=== PATIENT | male | born 1955 | race Two or more races ===

== ENCOUNTER 2022-01-28 14:33 | Emergency (ER) | payer OTHER ==
[~2022-01-28] VITALS: Ht 180.3 cm; Wt 98.4 kg
[2022-01-28 16:32] LABS: Basophils # (auto) 0.1 10 ^3/uL (0-0.2); Basophils % (auto) 0.9 % (0.0-2.0); Eosinophils # (auto) 0.3 10 ^3/uL (0-0.8); Eosinophils % (auto) 4.4 % (0.0-7.0); Hemoglobin 14.9 g/dL (13.5-17.5); Lymphocytes # (auto) 1.4 10 ^3/uL (0.4-5.4); Lymphocytes % (auto) 24.2 % (10.0-50.0); Mean Corpuscular Hemoglobin 31.8 pg (28.0-32.0); Mean Corpuscular Hgb Conc. 34.6 g/dL (32.0-36.0); Monocytes # (auto) 0.5 10 ^3/uL (0-1.3); Monocytes % (auto) 8.2 % (0.0-12.0); Neutrophils # (auto) 3.7 10 ^3/uL (1.6-8.6); Neutrophils % (auto) 62.3 % (37.0-80.0); Nucleated Red Blood Cells % 0.1 %; Red Blood Cells 4.68 10^6/uL (4.5-5.90); Red Cell Distribution Width 13.2 % (11.8-14.3); White Blood Cell 5.9 10^3/uL (4.4-10.8)
[2022-01-28 16:47] LABS: Albumin 3.7 g/dL (3.4-5.0); BUN/Creatinine Ratio 18.1; Calcium 9.4 mg/dL (8.5-10.1); Potassium 4.9 mmol/L (3.5-5.1)
[2022-01-28 16:50] LABS: Bilirubin, Total 0.7 mg/dL (0.2-1.0)
[2022-01-28 20:52] LABS: Urine Bacteria NONE SEEN /hpf (None Seen); Urine Blood Negative /uL (Negative); Urine Mucus FEW (None Seen); Urine Specific Gravity 1.028 (1.001-1.035); Urine WBC 1 /hpf (0 - 3)
[2022-01-28 21:42] VITALS: BP 144/98
== END 2022-01-29 01:27 | disposition home or self-care (01) ==
LOC: ER 14:33
DX: R10.11 Right upper quadrant pain (principal); R19.7 Diarrhea, unspecified; I10 Essential (primary) hypertension; Z88.8 Allergy status to other drugs, medicaments and biological substances
CPT/HCPCS: 36415; 74176; 80053; 81001; 85025; 93005

== ENCOUNTER 2023-07-07 06:13 | Inpatient (IN) | payer OTHER ==
[~2023-07-07] VITALS: Ht 180.3 cm; Wt 95.6 kg
[~2023-07-07 06:13] MED LIST: AMLO1TAB23 PO; LISI40TA16 PO; RIV20T PO; ROSU40TA81 PO
[2023-07-07] MEDS ORDERED: ceFAZolin 1GM/50ML 0 ML IV ONE (06:24)
[2023-07-07] MEDS ORDERED: ceFAZolin 2 GM/D5W100ml 100 ML IV ONE (06:27)
[2023-07-07] MEDS ORDERED: TRANEXAMIC ACID 20 ML ONE (06:33)
[2023-07-07] MEDS ORDERED: BUPIVACAINE HCL 50 ML ONE (06:45)
[2023-07-07] MEDS ORDERED: EPINEPHrine HCL 1 MG/1 ML AMP ONE (06:45)
[2023-07-07] MEDS ORDERED: MORPHINE SULF PF 5 MG/10 ML VIAL ONE (06:47)
[2023-07-07] MEDS ORDERED: KETOROLAC TROMETH 30 MG/ML 1ML VIAL ONE (06:48)
[2023-07-07] MEDS ORDERED: SUCCINYLCHOLINE CHLORIDE 20 MG/ML 10ML VIAL IV ONE (07:19)
[2023-07-07] MEDS ORDERED: LIDOCAINE 2% JELLY 11ml (GLYDO) ONE (07:22)
[2023-07-07] MEDS ORDERED: fentaNYL CITRATE 100 MCG/2 ML VL ONE ×2 (07:23→10:20)
[2023-07-07] MEDS ORDERED: MEPERIDINE HCL (50 MG/ML) 1 ML VIAL ONE (07:24)
[2023-07-07] MEDS ORDERED: MIDAZOLAM HCL 2MG/2ML 2ml VIAL (1mg/ml) ONE (07:24)
[2023-07-07] MEDS ORDERED: MORPHINE SULFATE 4 MG/ML SYR/VIAL IV PRN (08:00)
[2023-07-07] MEDS ORDERED: HYDROmorphone HCL 2 MG/ML VL/or syr IV PRN ×2 (08:00→11:30)
[2023-07-07] MEDS ORDERED: ePHEDrine SULFATE 50 MG/ML AMP IV PRN (08:00)
[2023-07-07] MEDS ORDERED: LABETALOL HCL 5 MG/ML 4ML SYRINGE IV PRN (08:00)
[2023-07-07] MEDS ORDERED: hydrALAZINE HCL 20 MG/ML VL IV PRN ×2 (08:00→15:30)
[2023-07-07] MEDS ORDERED: MIDAZOLAM HCL 2MG/2ML 2ml VIAL (1mg/ml) IV PRN (08:00)
[2023-07-07] MEDS ORDERED: ONDANSETRON HCL 4 MG/2 ML VIAL IV PRN (08:00)
[2023-07-07] MEDS ORDERED: KETOROLAC TROMETH 30 MG/ML 1ML VIAL IV ONE (08:00)
[2023-07-07] MEDS ORDERED: DexAMETHasone SOD PHOS 10MG/1ML VIAL INJ ONE (08:06)
[2023-07-07] MEDS ORDERED: PROPOFOL 10 MG/ML 20 ML IV ONE (08:06)
[2023-07-07] MEDS ORDERED: ONDANSETRON HCL 4 MG/2 ML VIAL ONE (08:06)
[2023-07-07] MEDS ORDERED: ROCURONIUM 10MG/ML 10ML VIAL IV ONE (08:06)
[2023-07-07] MEDS ORDERED: CLINDAMYCIN 300 MG IV ONE (08:45)
[2023-07-07] MEDS ORDERED: CLINDAMYCIN 900MG IV 50 ML IV ONE (08:45)
[2023-07-07] MEDS ORDERED: SUGAMMADEX 200mg/2ml Vial (100MG/ML) IV ONE (10:40)
[2023-07-07] MEDS ORDERED: BUPIVACAINE 0.5% INJ 50ML VIAL ID ONE (10:45)
[2023-07-07] MEDS ORDERED: VANCOMYCIN HCL 1000 MG VL ONE (10:50)
[2023-07-07 11:27] VITALS: PULSE 88; RESP 17; O2SAT 99
[2023-07-07] MEDS ORDERED: NITROGLYCERIN 0.4 MG SL TAB SL PRN (11:30)
[2023-07-07] MEDS ORDERED: ACETAMINOPHEN 325 MG TAB PO PRN (11:30)
[2023-07-07] MEDS ORDERED: MORPHINE SULFATE INJ 2 MG/ml SYRG IV PRN (11:30)
[2023-07-07] MEDS ORDERED: CLINDAMYCIN 600MG IV 50 ML IV SCH (12:00)
[2023-07-07] MEDS: HYDROmorphone HCL 2 MG/ML VL/or syr IV PRN ×3 (12:04→12:28)
[2023-07-07] MEDS: HYDROcodone-ACET 10/325MG TAB PO PRN (12:33)
[2023-07-07] MEDS: ONDANSETRON HCL 4 MG/2 ML VIAL IV PRN ×2 (12:54→18:36)
[2023-07-07] MEDS: LISINOPRIL 20 MG TAB PO SCH (14:45)
[2023-07-07] MEDS: amLODIPine BESYLATE 5 MG TAB PO SCH (14:46)
[2023-07-07 16:17] VITALS: BP 166/95; PULSE 70; RESP 19; TEMP 98.3; O2SAT 96
[2023-07-07 16:37] VITALS: BP 166/95; PULSE 70; RESP 19; TEMP 98.4; O2SAT 96
[2023-07-07] MEDS: CLINDAMYCIN 900MG IV 50 ML IV SCH (17:26)
[2023-07-07] MEDS: LACTATED RINGER'S 1,000 ML IV SCH ×2 (17:27→19:31)
[2023-07-07] MEDS ORDERED: RIVAROXABAN 20 MG TAB PO SCH (18:00)
[2023-07-07 18:25] LABS: Chloride 110 mmol/L (98-107); Sodium 140 mmol/L (136-145)
[2023-07-07 18:26] LABS: Anion Gap 9 (5-15); Carbon Dioxide 21 mmol/L (20-30)
[2023-07-07 18:31] LABS: BUN/Creatinine Ratio 14.6 (10.0-20.0); Blood Urea Nitrogen 12 mg/dL (9-23); Glucose 168 mg/dL (74-106)
[2023-07-07 20:00] VITALS: BP 164/60; PULSE 69; RESP 18; TEMP 97.6; O2SAT 99
[2023-07-07 22:00] VITALS: BP 164/80; PULSE 69; RESP 18; TEMP 97.6; O2SAT 99
[2023-07-07] MEDS: DOCUSATE SOD 100 MG CAP PO SCH (22:00)
[2023-07-08] MEDS: CLINDAMYCIN 900MG IV 50 ML IV SCH ×2 (01:01→10:19)
[2023-07-08] MEDS: HYDROcodone-ACET 10/325MG TAB PO PRN ×3 (03:07→15:49)
[2023-07-08 05:00] VITALS: BP 154/76; PULSE 72; RESP 16; TEMP 98.1; O2SAT 97
[2023-07-08 07:00] LABS: Basophils # (auto) 0 10 ^3/uL (0-0.2); Basophils % (auto) 0.2 % (0.0-2.0); Eosinophils # (auto) 0 10 ^3/uL (0-0.8); Hematocrit 38.7 % (41.0-53.0); Hemoglobin 13.2 g/dL (13.5-17.5); Lymphocytes # (auto) 0.7 10 ^3/uL (0.4-5.4); Lymphocytes % (auto) 6.8 % (10.0-50.0); Mean Corpuscular Hgb Conc. 34.1 g/dL (32.0-36.0); Mean Corpuscular Volume 93.6 fL (80.0-100.0); Monocytes # (auto) 1.2 10 ^3/uL (0-1.3); Monocytes % (auto) 12.2 % (0.0-12.0); Neutrophils # (auto) 7.9 10 ^3/uL (1.6-8.6); Neutrophils % (auto) 80.8 % (37.0-80.0); Red Blood Cells 4.14 10^6/uL (4.5-5.90); Red Cell Distribution Width 13.6 % (11.8-14.3); White Blood Cell 9.8 10^3/uL (4.4-10.8)
[2023-07-08 07:11] LABS: Alanine Aminotransferase 18 U/L (7-40); Albumin 3.8 g/dL (3.2-4.8); Alkaline Phosphatase 80 U/L (46-116); Anion Gap 6 (5-15); Aspartate Aminotransferase 17 U/L (13-40); BUN/Creatinine Ratio 20.9 (10.0-20.0); Bilirubin, Total 0.8 mg/dL (0.2-1.0); Blood Urea Nitrogen 14 mg/dL (9-23); Calcium 8.8 mg/dL (8.5-10.1); Carbon Dioxide 25 mmol/L (20-30); Chloride 108 mmol/L (98-107); Glucose 121 mg/dL (74-106); Potassium 3.8 mmol/L (3.5-5.1); Sodium 139 mmol/L (136-145); Total Protein 5.8 g/dL (5.7-8.2)
[2023-07-08] MEDS: LACTATED RINGER'S 1,000 ML IV SCH (07:30)
[2023-07-08 07:43] LABS: Magnesium 1.8 mg/dL (1.6-2.6)
[2023-07-08 08:00] VITALS: BP 154/68; PULSE 65; RESP 16; TEMP 98.3; O2SAT 96
[2023-07-08 08:10] VITALS: O2SAT 96
[2023-07-08 08:51] VITALS: BP 154/68; PULSE 65; RESP 16; TEMP 98.3; O2SAT 96
[2023-07-08] MEDS ORDERED: GLYCERIN ADULT RECTAL SUPP PR ONE (09:45)
[2023-07-08] MEDS ORDERED: FAMOTIDINE (10MG/ML) 2ML VL IV ONE (09:45)
[2023-07-08] MEDS ORDERED: PATIENTS OWN MEDICATION (Lisinopril 40 MG) PO SCH (10:00)
[2023-07-08] MEDS ORDERED: ROSUVASTATIN 40 MG PO SCH (10:00)
[2023-07-08] MEDS ORDERED: PATIENTS OWN MEDICATION (Amlodipine Besylate 10 MG) PO SCH (10:00)
[2023-07-08] MEDS ORDERED: CALCIUM CARB 500 MG CHEW TAB PO SCH (10:00)
[2023-07-08] MEDS ORDERED: PATIENTS OWN MEDICATION (Rosuvastatin Calcium (Crestor) 40 MG) PO SCH (10:00)
[2023-07-08] MEDS: LISINOPRIL 20 MG TAB PO SCH (10:13)
[2023-07-08] MEDS: amLODIPine BESYLATE 5 MG TAB PO SCH (10:14)
[2023-07-08] MEDS: DOCUSATE SOD 100 MG CAP PO SCH (10:15)
[2023-07-08] MEDS ORDERED: RIVAROXABAN 20 MG TAB PO SCH (13:00)
[2023-07-08 13:04] VITALS: BP 132/81; PULSE 73; RESP 16; TEMP 98.4; O2SAT 94
[2023-07-08] MEDS ORDERED: ZOFR4T PO (16:46)
[2023-07-08 17:00] VITALS: BP 117/78; PULSE 74; RESP 16; TEMP 99.3; O2SAT 98
== END 2023-07-08 18:18 | disposition home or self-care (01) | DRG 483 ==
LOC: SUR 06:13 → OVERFLOW 11:28 → WEST WING 16:16
PROVIDERS: ADMIT Orthopaedic Surgery Sports Medicine; ATTEND Orthopaedic Surgery Sports Medicine
PROC: 0LS30ZZ Reposition Right Upper Arm Tendon, Open Approach (ICD-10-PCS; 2023-07-07)
PROC: 0RHJ04Z Insertion of Internal Fixation Device into Right Shoulder Joint, Open Approach (ICD-10-PCS; 2023-07-07)
PROC: 0RRJ00Z Replacement of Right Shoulder Joint with Reverse Ball and Socket Synthetic Substitute, Open Approach (ICD-10-PCS; principal; 2023-07-07 07:28)
DX: M75.121 Complete rotator cuff tear or rupture of right shoulder, not specified as traumatic (principal); I10 Essential (primary) hypertension; I48.91 Unspecified atrial fibrillation; G89.29 Other chronic pain; Z96.659 Presence of unspecified artificial knee joint; Z96.611 Presence of right artificial shoulder joint; Z82.3 Family history of stroke; Z79.01 Long term (current) use of anticoagulants; Z86.73 Personal history of transient ischemic attack (TIA), and cerebral infarction without residual deficits
CPT/HCPCS: 36415; 73020; 73030; 76000; 80048; 80053; 83735; 85025; 86850; 86900; 86901; A4565; G0378; J0171; J0330; J0690; J1100; J1885; J2250; J2405; J2704; J3490

== ENCOUNTER 2023-07-17 13:46 | Emergency (ER) | payer OTHER ==
[~2023-07-17] VITALS: Ht 180.3 cm; Wt 92.0 kg
[~2023-07-17 13:46] MED LIST changes: +ZOFR4T PO
[2023-07-17 14:05] VITALS: BP 111/66; PULSE 60; RESP 16; O2SAT 97
[2023-07-17] MEDS ORDERED: ENOXAPARIN SOD 100 MG/1 ML SYRINGE SC ONE (15:15)
== END 2023-07-17 20:48 | disposition home or self-care (01) ==
LOC: ER 13:46
DX: M79.601 Pain in right arm (principal); I10 Essential (primary) hypertension; E78.5 Hyperlipidemia, unspecified; Z86.73 Personal history of transient ischemic attack (TIA), and cerebral infarction without residual deficits; Z87.891 Personal history of nicotine dependence; Z79.899 Other long term (current) drug therapy; Z88.8 Allergy status to other drugs, medicaments and biological substances; Z96.611 Presence of right artificial shoulder joint
CPT/HCPCS: 73030; 93971

== ENCOUNTER 2024-06-23 08:04 | Inpatient (IN) | payer OTHER ==
[~2024-06-23] VITALS: Ht 180.3 cm; Wt 134.0 kg
[~2024-06-23 08:04] MED LIST changes: -ZOFR4T PO
[2024-06-23] MEDS: ceFAZolin 2 GM/D5W100ml 100 ML IV ONE (08:41)
[2024-06-23] MEDS: TRANEXAMIC ACID 20 ML ONE (09:27)
[2024-06-23] MEDS: BUPIVACAINE HCL 50 ML ONE (09:27)
[2024-06-23] MEDS: DexAMETHasone SOD PHOS 4 MG/1ML SDV INJ ONE (09:32)
[2024-06-23] MEDS: EPINEPHrine HCL 1 MG/1 ML AMP ONE (09:32)
[2024-06-23] MEDS ORDERED: fentaNYL CITRATE 100 MCG/2 ML VL ONE (09:55)
[2024-06-23] MEDS ORDERED: MEPERIDINE HCL (50 MG/ML) 1 ML VIAL ONE (09:55)
[2024-06-23] MEDS: CLINDAMYCIN 600MG IV 50 ML IV ONE (09:56)
[2024-06-23] MEDS: CLINDAMYCIN 300MG IV 50 ML IV ONE (10:00)
[2024-06-23] MEDS ORDERED: MIDAZOLAM HCL 2MG/2ML 2ml VIAL (1mg/ml) ONE (10:06)
[2024-06-23] MEDS: VANCOMYCIN HCL 1000 MG VL ONE (10:12)
[2024-06-23] MEDS ORDERED: ROCURONIUM 10MG/ML 10ML VIAL IV ONE (10:54)
[2024-06-23] MEDS ORDERED: PROPOFOL 10 MG/ML 20 ML IV ONE (10:54)
[2024-06-23] MEDS ORDERED: ONDANSETRON HCL 4 MG/2 ML VIAL ONE (10:54)
[2024-06-23] MEDS ORDERED: DexAMETHasone SOD PHOS 10MG/1ML VIAL INJ ONE (10:54)
[2024-06-23] MEDS ORDERED: hydrALAZINE HCL 20 MG/ML VL ONE (11:34)
[2024-06-23] MEDS ORDERED: SODIUM CHLORIDE LOCK 10 ML ONE (11:35)
[2024-06-23] MEDS ORDERED: hydrALAZINE HCL 20 MG/ML VL IV PRN (12:15)
[2024-06-23] MEDS ORDERED: MIDAZOLAM HCL 2MG/2ML 2ml VIAL (1mg/ml) IV PRN (12:15)
[2024-06-23] MEDS ORDERED: fentaNYL CITRATE 100 MCG/2 ML VL IV PRN (12:15)
[2024-06-23] MEDS ORDERED: ePHEDrine SULFATE 50 MG/ML AMP IV PRN (12:15)
[2024-06-23] MEDS ORDERED: MORPHINE SULFATE 4 MG/ML SYR/VIAL IV PRN (12:15)
[2024-06-23] MEDS ORDERED: LIDOCAINE 1% (LOCAL ANESTH.) PF 5ml SDV ONE (12:41)
[2024-06-23] MEDS ORDERED: SUGAMMADEX 200mg/2ml Vial (100MG/ML) IV ONE (12:42)
[2024-06-23 13:05] VITALS: RESP 12; O2SAT 97
--- NOTE | 2024-06-23 13:12 | DVH ---
FLUOROSCOPY TIME: 22.9 seconds TECHNIQUE: Intraoperative radiographs of the left shoulder were obtained. COMPARISON: XY C ARM FLUOROSCOPY UP TO 60MIN on DOS: 07/07/23 FINDINGS: Refer to intraoperative report for further evaluation. IMPRESSION: Refer to intraoperative report for further evaluation.
[2024-06-23] MEDS ORDERED: MORPHINE SULFATE INJ 2 MG/ml SYRG IV PRN (13:15)
[2024-06-23] MEDS ORDERED: NITROGLYCERIN 0.4 MG SL TAB SL PRN (13:15)
--- NOTE | 2024-06-23 13:43 | DVHOP2 ---
Operative Report - 2 Report Details Date: 06/23/24 Preop Diagnosis: Left Shoulder rotator cuff arthropathy Postop Diagnosis: Left Shoulder rotator cuff arthropathy Surgeon: Satnam Sanchez MD Material Flow Analyst: Saul Perdomo Physician Material Flow Analyst Anesthesiologist: Dr Paulson and Tico Marti CRNA Anesthesia: General, Regional Implant: FX shoulder systems, 12 mm stem, 40 mm glenosphere, + 3 lateralized base plate, retentive size three liner, four screws. Consent: The patient was informed of the risks and benefits of the procedure. These include but are not limited to complications of anesthesia, postoperative infection, incomplete relief of symptoms, recurrence of symptoms, damage to blood vessels, nerves and tendons, deep venous thrombosis, pulmonary embolism and possible need for repeat surgery in the future. Complications: None Estimated Blood Loss: Less than 10 mL Indications for Surgery: The patient is a 69-year-old male who presented to the clinic with a history of left shoulder pain. Clinical and radiological evaluation demonstrated rotator cuff arthropathy. Nonoperative and operative management options were discussed. He had failed thorough nonoperative management and had satisfactory results with a right reverse shoulder arthroplasty. He wanted to proceed with the same on this side as well. Benefits, risks and treatment alternatives were discussed . Specific complications of the surgery such as neurovascular injury, infection, arthrofibrosis, loss of limb or life were discussed. He decided to proceed with the surgical option. Name of Procedure Performed Left reverse shoulder replacement with open biceps tenodesis Procedure Details Procedure Details: The patient was identified in the preoperative holding area and the surgical site was marked. The consent was verified. The patient was brought into the operating room and placed supine on the operating table. General anesthesia was administered. The patient was brought into the beachchair position at 45 degrees angle. The extremity was prepped and draped in the usual sterile manner with Betadine and ChloraPrep. A timeout was called out to confirm the identity of the patient, the nature of surgery, the site of surgery, development of implants and x-rays and allergies to medications. All the bony prominences were appropriately padded Exposure: A standard deltopectoral approach was used. An incision was made from the superior portion of the coracoid to the upper arm lateral to the axillary line. The skin and the subcutaneous tissue were dissected. The deep fascia was incised. The cephalic vein was identified. The coracoid was identified and the conjoined tendon was also identified. The pectoralis tendon, approximately 1 cm was released. The biceps tendon was identified and tenodesis was carried out. This was sutured to the pectoralis major tendon with the help of FiberWire suture and was cut proximally. Crowley retractors were inserted. Adequate exposure was noted. The deltoid was released with the help of a Cooley elevator for better exposure. The subscapularis tendon was identified. The subscapularis tendon was released. Circumflex arteries and veins were coagulated. This was whipstitched for later identification and possible repair. The humeral head was now exposed with external rotation and release of the inferior capsule. This was gently dislocated using a Darrach retractor. Significant arthritis with full-thickness cartilage defect was noted. Significant osteophytes were also noted. A retractor was inserted below the CA ligament as well. There was a partial tear of supraspinatus and infraspinatus with some footprint exposed. Humeral cut: The retroversion was set to 30 degrees. An external guide was used and affixed to the bone with the help of guide pins. Next, a saw was used to create the humeral cut. This was just above the rotator cuff footprint. Next, a small drill was used to find the intramedullary canal. Next, the humeral side was now prepared. This was now reamed up to 14 mm. Glenoid exposure and implantation of glenoid prosthesis: A Darrach retractor was then inserted to retract the humeral head and expose the glenoid. Release of the anterior and posterior capsule was carried out. Release of the middle and inferior glenohumeral ligament was carried out. Superior labrum and biceps were removed. Significant cartilage damage of the glenoid was noted. Minimal retroversion was noted. A tug test was performed to confirm the position of the axillary nerve which was out of the surgical field. The inferior capsule was left intact and was released only with the help of a blunt elevator. The labrum and the capsule was hypertrophied and this was very thick and calcified. Next, the center of the glenoid was marked with the help of a Bovie using the biceps and the coracoid as landmarks. Next a guide was inserted, a guidewire was inserted through the central portion. This was found to be in anatomic location, slightly inferior to the center. Next the central reamer was inserted. Next the hand-held peripheral reamer was inserted. The periphery was reamed, minimal cartilage was removed. Appropriate soft tissue resection was carried out. Minimal cartilage was removed to preserve the underlying bone. Next the baseplate was inserted with the help of an associate account director A central post was applied to the final implant on the back table and inserted with gentle taps. It was rotated to align the screws in the appropriate directions. Next a drill guide was used to drill the hole for the screws. Locking and nonlocking screws were used for excellent compression and fixation. The glenosphere was now implanted on top of the baseplate over the guidewire with the screw. The screw was rotated over the glenosphere for excellent fixation. No impingement was noted. A Kimberly was used to test the stability of baseplate as well as the glenosphere and was found to be very secure. Next, a trial stem was inserted. Next, a provisional soft tissue tensioning assessment was done with an attempt to reduce with a 3 mm trial liner. This was found to be adequate with 1 mm of shuck. The final stem and liner was opened up. The joint was now trialed again with a 3 mm liner and was noticed to be excellent. A final 3 mm retentive implant was opened up and inserted on the humeral stem. This was tapped and excellent fixation was noted. Excellent stability and range of motion was noted, abduction of 120 and flexion up to 120 degrees. The shoulder did not dislocate with adduction, internal rotation and extension or with abduction and external rotation. Shuck test was acceptable with approximately 1 mm of gap with manual longitudinal traction. The fixation was tested with the help of a Kimberly clamp. Excellent fixation was noted. Irrigation was given with bulb syringe lavage with bacitracin and normal saline, Betadine and vancomycin powder was applied as well. All bony debris was also removed. C-arm was used throughout the procedure for evaluation of guidewire, humeral cut, baseplate and glenosphere position and finally humerus stem position and joint reduction. The subscapularis was approximated with the help of looped Ethibond sutures through the bone tunnel. Some approximation was noted. The deep tissue, skin and the subcutaneous tissue were closed with 0 Vicryl, 2-0 Vicryl, and tanja. Sterile dressing was applied. The patient was placed in a shoulder immobilizer. Condition Good Disposition Still a Patient MICHELE,SATNAM P MD Jun 23, 2024 13:43
[2024-06-23] MEDS: HYDROmorphone HCL 2 MG/ML VL/or syr IV PRN (13:44)
[2024-06-23] MEDS: oxyCODONE HCL 5MG TAB PO ONE (14:12)
[2024-06-23 15:20] VITALS: BP 156/85; PULSE 83; RESP 18; TEMP 98.4; O2SAT 94
[2024-06-23 15:28] VITALS: BP 156/85; PULSE 94; RESP 18; TEMP 98.4; O2SAT 94
[2024-06-23] MEDS: ceFAZolin 1GM/50ML 50 ML IV SCH (17:28)
[2024-06-23] MEDS: RIVAROXABAN 20 MG TAB PO SCH (17:29)
[2024-06-23] MEDS: ONDANSETRON HCL 4 MG/2 ML VIAL IV ONE (19:52)
[2024-06-23 20:00] VITALS: PULSE 101; PULSE 80; RESP 20; O2SAT 96
[2024-06-23 21:00] VITALS: BP 156/93; PULSE 80; RESP 20; TEMP 97.7; O2SAT 96
[2024-06-23] MEDS: LACTATED RINGER'S 1,000 ML IV SCH (21:10)
[2024-06-23] MEDS: DOCUSATE SOD 100 MG CAP PO SCH (23:23)
[2024-06-23] MEDS: ONDANSETRON HCL 4 MG/2 ML VIAL IV PRN (23:58)
[2024-06-24] MEDS: HYDROcodone-ACET 5/325MG TAB PO PRN (04:52)
[2024-06-24] MEDS: ceFAZolin 1GM/50ML 50 ML IV SCH (05:04)
[2024-06-24 05:45] VITALS: BP 167/86; PULSE 91; RESP 20; TEMP 98.7; O2SAT 97
[2024-06-24 06:18] LABS: Hematocrit 42.7 % (41.0-53.0)
[2024-06-24 06:23] LABS: Alanine Aminotransferase 19 U/L (7-40); Albumin 4.4 g/dL (3.2-4.8); Alkaline Phosphatase 89 U/L (46-116); Anion Gap 6 (5-15); Aspartate Aminotransferase 15 U/L (13-40); BUN/Creatinine Ratio 17.7 (10.0-20.0); Blood Urea Nitrogen 14 mg/dL (9-23); Calcium 9.6 mg/dL (8.7-10.4); Carbon Dioxide 24 mmol/L (20-31); Chloride 106 mmol/L (98-107); Glucose 132 mg/dL (74-106); Potassium 3.9 mmol/L (3.5-5.1); Sodium 136 mmol/L (136-145)
[2024-06-24 06:24] LABS: Bilirubin, Total 0.8 mg/dL (0.2-1.0); Total Protein 6.7 g/dL (5.7-8.2)
[2024-06-24 08:00] VITALS: PULSE 92; RESP 17; O2SAT 93
--- NOTE | 2024-06-24 08:02 | DVHPN2 ---
Progress Note - Dictate Date Seen: Jun 24, 2024 Medical Necessity Reason Pt with a Central, PICC or Fol: No Subjective Patient was lying comfortably in bed during my evaluation reports some postoperative shoulder pain that is being well managed with the help of pain medication. Patient reports that the block given to him preoperatively help significantly reduce his pain and is very happy with surgical outcomes thus far. Patient is otherwise feeling well denying any other complaints or concerns during my evaluation would like to go home. vital signs Vital Sign Date Time Temp Pulse Resp B/P (MAP) Pulse Ox O2 Delivery O2 Flow Rate FiO2 06/24/24 05:45 98.7 91 20 167/86 (113) 97 98.7 06/23/24 20:00 Nasal Cannula* 2 28 Total Intake and Output 06/23/24 06/23/24 06/24/24 15:00 23:00 07:00 Intake Total 50 ml 50 ml 100 ml Output Total 800 ml Balance 50 ml 50 ml -700 ml medications Current Medications Medications Dose Ordered Sig/Brittany Route Start Time Stop Time Status Last Admin Dose Admin Nitroglycerin 0.4 mg Q5MINP PRN SL 06/23/24 13:15 Morphine Sulfate 2 mg Q30M PRN IV 06/23/24 13:15 Rivaroxaban 20 mg QPM PO 06/23/24 18:00 06/23/24 17:29 20 MG Amlodipine Besylate 10 mg DAILY PO 06/24/24 10:00 Lisinopril 40 mg DAILY PO 06/24/24 10:00 Patient Own Medication 40 mg DAILY PO 06/24/24 10:00 Lactated Ringer's 1,000 ml @ 100 mls/hr Q10H IV 06/23/24 13:45 06/23/24 21:10 100 MLS/HR Ondansetron HCl 4 mg Q6HP PRN IV 06/23/24 13:45 06/23/24 23:58 4 MG Docusate Sodium 100 mg Q12HR PO 06/23/24 22:00 06/23/24 23:23 100 MG Acetaminophen/ Hydrocodone Bitart 1 tab Q6HPRN PRN PO 06/24/24 04:45 06/24/24 04:52 1 TAB objective A&O x4 in no acute distress Shoulder range of motion not fully evaluated as patient remains in shoulder immobilizer Aquacel dressing clean, dry, and intact No distal edema or calf tenderness to palpation Neurovascularly intact with cap refill less than 2 seconds laboratory and microbiology Laboratory Tests 06/24/24 05:38 Test 06/24/24 05:38 Range/Units Serum Glucose 132 H 74-106 mg/dL Assessment/Plan Patient to be discharged home and advised to remain in his shoulder immobilizer for six weeks from his date of surgery. Patient also instructed to follow up with our office in 10-14 days for his 1st postoperative evaluation. Rx sent via our outpatient EMR system. He understood and agreed. Plan discussed with: Patient RICHARD BRADLEY Jun 24, 2024 08:02
--- NOTE | 2024-06-24 08:02 | DVHDS2 ---
Discharge Summary Date of Admission Jun 23, 2024 at 13:09 Date of Discharge: Jun 24, 2024 Labs/Diagnostic Data: Laboratory Results Test 06/24/24 05:38 06/23/24 17:14 Hemoglobin 15.0 g/dL (13.5-17.5) Hematocrit 42.7 % (41.0-53.0) Sodium Level 136 mmol/L (136-145) Potassium Level 3.9 mmol/L (3.5-5.1) Chloride Level 106 mmol/L (98-107) Carbon Dioxide Level 24 mmol/L (20-31) Anion Gap 6 (5-15) Blood Urea Nitrogen 14 mg/dL (9-23) Creatinine 0.79 mg/dL (0.700-1.30) Glomerular Filtration Rate Calc 96 mL/min (>90) BUN/Creatinine Ratio 17.7 (10.0-20.0) Serum Glucose 132 mg/dL (74-106) Calcium Level 9.6 mg/dL (8.7-10.4) Total Bilirubin 0.8 mg/dL (0.2-1.0) Aspartate Amino Transferase (AST) 15 U/L (13-40) Alanine Aminotransferase (ALT) 19 U/L (7-40) Alkaline Phosphatase 89 U/L (46-116) Total Protein 6.7 g/dL (5.7-8.2) Albumin 4.4 g/dL (3.2-4.8) Other Laboratory Tests 06/24/24 05:38 Brief Hx & Hospital Course: Patient was brought to the hospital yesterday to undergo a left reverse shoulder arthroplasty, he tolerated the procedure well without complications and was kept overnight for postoperative observation. Patient has remained medically stable denying any overnight events and reports that his pain has been well controlled with the help of pain medication. Patient is otherwise feeling well denying any other complaints or concerns during my evaluation and would like to go home. Patient is very satisfied with surgical outcomes so far and is very happy with the preoperative block that he was given. Condition at Discharge: Good Final Diagnosis/Problems List Left Shoulder rotator cuff arthropathy Discharge Disposition: Home Discharge Instruct/Medications Diet: Regular Activity: See Comment Activity comment: Patient is to remain in his shoulder immobilizer for six weeks from his date of surgery Follow Up/Referral: Patient instructed to follow up with our office in 10-14 days for his 1st postoperative evaluation Medications: Rx sent via our outpatient EMR system Discharge Statement: "Patient was advised to return to the ER or call 911 if any headaches, dizziness, shortness of breath, chest pain, abdominal pain, bleeding, fevers, or worsening of medical condition. Patient was counseled about treatment plan, medications, possible side effects, patientverbalized understanding. All questions were answered to the best of my ability. This discharge took greater then 30 minutes in planning, reviewing documentation, counseling the patient, and discussing with other team members." ASSESSMENT ASSESSMENT Assessment Left Shoulder rotator cuff arthropathy RICHARD BRADLEY Jun 24, 2024 08:02
[2024-06-24 09:00] VITALS: BP 153/81; PULSE 69; RESP 17; TEMP 98.3; O2SAT 96
[2024-06-24] MEDS: LISINOPRIL 20 MG TAB PO SCH (09:08)
[2024-06-24] MEDS: amLODIPine BESYLATE 5 MG TAB PO SCH (09:09)
[2024-06-24] MEDS: Rosuvastatin Calcium (Crestor) 40 MG TABLET PO SCH (10:00)
[2024-06-24 12:31] VITALS: BP 167/86; TEMP 36.8
[2024-06-24 12:41] VITALS: BP 166/79; PULSE 81; RESP 19; TEMP 98.4; O2SAT 97
[2024-06-27 08:50] LABS: Hepatitis B Surface Antigen Negative (Negative)
[2024-06-27 09:12] LABS: Hepatitis C Antibody Negative (Negative)
== END 2024-06-24 13:00 | disposition home or self-care (01) | DRG 483 ==
LOC: SUR 08:04 → TELE 13:09 → OVERFLOW 13:37 → EAST 15:48
PROVIDERS: ADMIT Orthopaedic Surgery Sports Medicine; ATTEND Student in an Organized Health Care Education/Training Program
PROC: 0LS40ZZ Reposition Left Upper Arm Tendon, Open Approach (ICD-10-PCS; 2024-06-23)
PROC: 0RRK00Z Replacement of Left Shoulder Joint with Reverse Ball and Socket Synthetic Substitute, Open Approach (ICD-10-PCS; principal; 2024-06-23 09:58)
DX: M19.012 Primary osteoarthritis, left shoulder (principal); Z79.899 Other long term (current) drug therapy
CPT/HCPCS: 36415; 73030; 76000; 80053; 85014; 85018; 86803; 86850; 86900; 86901; 87340; 97163; A4565; G0378; J0171; J1100; J2250; J2405; J2704; J3490